=== PATIENT | female | born 1990 | race Caucasian/White ===

== ENCOUNTER 2017-07-10 05:01 | Inpatient (IN) | payer OTHER ==
[2017-07-10] MEDS ORDERED: Nalbuphine 10 MG/1 ML Vial IVPUSH PRN (07:09)
[2017-07-10] MEDS ORDERED: Lidocaine 1% 50 ML MDV INJECT PRN (07:09)
[2017-07-10] MEDS ORDERED: Water For Irrigation,Sterile 1,000 ML Container IRR PRN (07:09)
[2017-07-10] MEDS ORDERED: Misoprostol 200 MCG Tab PO PRN (07:09)
[2017-07-10] MEDS ORDERED: Sodium Chloride 0.9% 10 ML Syringe FLUSH PRN (07:09)
[2017-07-10] MEDS ORDERED: Sodium Chloride 0.9% 2.5 ML Syringe FLUSH PRN (07:09)
[2017-07-10] MEDS ORDERED: Methylergonovine 0.2 MG/1 ML Amp IM PRN (07:09)
[2017-07-10] MEDS ORDERED: Carboprost Tromethamine 250 MCG/1 ML Amp IM PRN (07:09)
[2017-07-10] MEDS ORDERED: Butorphanol 1 MG/ML SDV IVPUSH PRN (07:09)
[2017-07-10] MEDS ORDERED: Oxytocin/Lactated Ringers 30 UNIT/500 ML BAG IV SCH (07:15)
[2017-07-10] MEDS: Lactated Ringers 1,000 ML IV SCH ×3 (07:35→10:19)
[2017-07-10] MEDS ORDERED: fentaNYL 100 MCG/2 ML SDV ONE (08:10)
[2017-07-10] MEDS ORDERED: ePHEDrine 50 MG/ML SDV ONE (08:10)
[2017-07-10] MEDS ORDERED: Ropivacaine 0.2% 2 MG/ML 20 ML SDV ONE (08:11)
[2017-07-10] MEDS ORDERED: Ropivacaine HCl/PF 100 ML ONE (08:11)
--- NOTE | 2017-07-10 09:07 | PCM.PREANE ---
Preanesthetic Assessment - Procedure Proposed Procedure: labor epidural - Anesthesia/Transfusion/Family Hx Anesthesia History: Prior Anesthesia Without Reaction Family History of Anesthesia Reaction: No Transfusion History: Unknown - Review of Systems General: No Symptoms Pulmonary: No Symptoms Cardiovascular: No Symptoms Gastrointestinal: No Symptoms Neurological: Other (degenerative disc disease L5) Other: Reports: None - Physical Assessment Height: 1.64 m Weight: 68.039 kg ASA Class: 2 Mental Status: Alert & Oriented x3 Airway Class: Mallampati = 1 Dentition: Reports: Normal Dentition Thyro-Mental Finger Breadths: 3 Mouth Opening Finger Breadths: 3 ROM/Head Extension: Full Lungs: Clear to Auscultation, Normal Respiratory Effort Cardiovascular: Regular Rate - Lab Values: Laboratory Last Values WBC 11.21 K/uL (4.0-11.0) H 07/10/17 07:35 RBC 4.31 M/uL (4.30-5.90) 07/10/17 07:35 Hgb 13.4 g/dL (12.0-16.0) 07/10/17 07:35 Hct 39.2 % (36.0-46.0) 07/10/17 07:35 MCV 91.0 fL (80.0-98.0) 07/10/17 07:35 MCH 31.1 pg (27.0-32.0) 07/10/17 07:35 MCHC 34.2 g/dL (31.0-37.0) 07/10/17 07:35 RDW Std Deviation 41.9 fl (28.0-62.0) 07/10/17 07:35 RDW Coeff of Rita 13 % (11.0-15.0) 07/10/17 07:35 Plt Count 226 K/uL (150-400) 07/10/17 07:35 MPV 10.10 fL (7.40-12.00) 07/10/17 07:35 Nucleated RBC % 0.0 /100WBC 07/10/17 07:35 Nucleated RBCs # 0 K/uL 07/10/17 07:35 Blood Type A POSITIVE 07/10/17 07:35 Antibody Screen NEGATIVE 07/10/17 07:35 - Allergies Allergies/Adverse Reactions: Allergies Allergy/AdvReac Type Severity Reaction Status Date / Time latex Allergy Rash Verified 05/05/14 17:17 Penicillins Allergy Hives Verified 05/05/14 17:17 valacyclovir HCl Allergy Rash Verified 05/05/14 17:17 [From Valtrex] - Blood Blood Available: Yes Product(s) Available: PRBC - Anesthesia Plan Pre-Op Medication Ordered: None - Acknowledgements Anesthesia Type Planned: Epidural Pt an Appropriate Candidate for the Planned Anesthesia: Yes Alternatives and Risks of Anesthesia Discussed w Pt/Guardian: Yes Pt/Guardian Understands and Agrees with Anesthesia Plan: Yes PreAnesthesia Questionnaire - Past Health History Medical/Surgical History: Denies Medical/Surgical History - SUBSTANCE USE Days Per Week of Alcohol Use: 0 Number of Drinks Per Day: 0 Total Drinks Per Week: 0 Recreational Drug Use History: No - HOME MEDS Home Medications: Home Meds Vit No.78/Iron/Fa [Prenatabs FA] 1 each PO 05/05/14 [History] - CURRENT (IN HOUSE) MEDS Current Meds: Current Medications Butorphanol Tartrate (Stadol) 1 mg IVPUSH Q1H PRN PRN Reason: Pain Carboprost Tromethamine (Hemabate Ds) 250 mcg IM ASDIRECTED PRN PRN Reason: Post Hemorrhage Lactated Ringer's (Ringers, Lactated) 1,000 mls @ 150 mls/hr IV ASDIRECTED ELIOT Last Admin: 07/10/17 08:24 Dose: 999 mls/hr Lidocaine HCl (Xylocaine 1%) 50 ml INJECT .ONCE PRN PRN Reason: Laceration repair Methylergonovine Maleate (Methergine) 0.2 mg IM ASDIRECTED PRN PRN Reason: Post Hemorrhage Misoprostol (Cytotec) 200 mcg PO .ONCE PRN PRN Reason: Post Hemorrhage Nalbuphine HCl (Nubain) 10 mg IVPUSH Q1H PRN PRN Reason: Pain (severe 7-10) Sodium Chloride (Saline Flush) 10 ml FLUSH ASDIRECTED PRN PRN Reason: Keep Vein Open Sodium Chloride (Saline Flush) 2.5 ml FLUSH ASDIRECTED PRN PRN Reason: Keep Vein Open Sterile Water (Sterile Water For Irrigation) 1,000 ml IRR ASDIRECTED PRN PRN Reason: delivery Discontinued Medications Ephedrine Sulfate (Ephedrine Sulfate) Confirm Administered Dose 50 mg .ROUTE .STK-MED ONE Stop: 07/10/17 08:11 Fentanyl (Sublimaze) Confirm Administered Dose 300 mcg .ROUTE .STK-MED ONE Stop: 07/10/17 08:11 Oxytocin/Lactated Ringer's (Pitocin In Lr 30 Units/500 Ml) 30 unit in 500 mls @ 999 mls/hr IV TITRATE ELIOT; 999 MUNITS/MIN PRN Reason: Protocol Stop: 07/10/17 07:46 Ropivacaine (Naropin 0.2%) Confirm Administered Dose 100 mls @ as directed .ROUTE .STK-MED ONE Stop: 07/10/17 08:12 Ropivacaine (Naropin 0.2%) Confirm Administered Dose 20 ml .ROUTE .STK-MED ONE Stop: 07/10/17 08:12
--- NOTE | 2017-07-10 09:18 | PCM.PRNOTE ---
- Free Text/Narrative Note: pt requesting epidural for relief of labor pain. history reviewed, pt had prior epidural placement with no problem. discussed placement,risks and expectations including nerve pain, nerve damage, bleeding, infection, unsuccessful placement or one sided epidural relief requiring replacement.pt agrees. sitting up, sterile betadine prep times three with sterile drape. 1% lidocaine SQ at L3. # 25 touhy epidural needle advanced SRIKANTH with saline. epidural space found very shallow at approximately 4 cm. no heme, no parasthesia. catheter placed easily, taped at 9 cm at skin. test dose 1.5% lidocaine with epi 1:200,000 3 ml. no reaction noted. pt supine, loading dose of 7 ml 0.2% ropivicaine and 100 mcg fentanyl injected over 5 minutes. pt remains stable. pain down to 1/10 feeling pressure only. ropivicaine 0.2% with fentanyl 2 mcg/ml started at 10 ml/hr. education reviewed regarding use of epidural pump bolus handle. pt comfortable
[2017-07-10] MEDS ORDERED: Oxytocin/Lactated Ringers 30 UNIT/500 ML BAG ONE (12:33)
[2017-07-10] MEDS ORDERED: oxyCODONE 5 MG Tab PO PRN (13:04)
[2017-07-10] MEDS ORDERED: Witch Hazel Medicated Pads 40/Jar TOP PRN (13:04)
[2017-07-10] MEDS ORDERED: Benzocaine/Menthol 20%-0.5% Spray 78 GM Cannister TOP PRN (13:04)
[2017-07-10] MEDS ORDERED: Lanolin 100% Cream 7 GM Tube TOP PRN (13:04)
[2017-07-10] MEDS ORDERED: Acetaminophen 500 MG Tab PO PRN ×2 (13:04)
[2017-07-10] MEDS ORDERED: Bisacodyl 10 MG Supp RECTAL PRN (13:04)
[2017-07-10] MEDS ORDERED: Ibuprofen 400 MG Tab PO PRN (13:04)
[2017-07-10] MEDS ORDERED: Docusate Sodium 100 MG Cap PO PRN (13:04)
[2017-07-10] MEDS: Ibuprofen 800 MG Tab PO PRN ×2 (16:45→22:33)
[2017-07-11] MEDS: Ibuprofen 800 MG Tab PO PRN ×2 (04:14→11:36)
[2017-07-11 04:37] VITALS: BP 133/86
--- NOTE | 2017-07-11 07:50 | PCM48HPAN ---
Post Anesthesia Note - EVALUATION WITHIN 48HRS OF ANESTHETIC Vital Signs in Normal Range: Yes Patient Participated in Evaluation: Yes Respiratory Function Stable: Yes Airway Patent: Yes Cardiovascular Function Stable: Yes Hydration Status Stable: Yes Pain Control Satisfactory: Yes Nausea and Vomiting Control Satisfactory: Yes Mental Status Recovered: Yes
--- NOTE | 2017-07-11 08:00 | PCM.PNPP ---
<Gerald Ray - Last Filed: 07/11/17 08:03> - General Info Date of Service: 07/11/17 Admission Dx/Problem (Free Text): Spontaneous onset of labor Subjective Update: Pt is doing well today. Pt is without difficulty. Has had no problems urinating. Has not had a bowel movement yet. Pain has been well controlled. Patient denies chest pain, shortness of breath, fever or chills. Functional Status: Reports: Pain Controlled, Tolerating Diet, Ambulating, Urinating - Review of Systems General: Reports: No Symptoms Cardiovascular: Reports: No Symptoms Gastrointestinal: Reports: No Symptoms Genitourinary: Reports: No Symptoms - General Info Date of Service: 07/11/17 - Patient Data Vital Signs - Most Recent: Last Vital Signs Temp 36.8 C 07/11/17 04:15 Pulse 72 07/11/17 04:15 Resp 16 07/11/17 04:15 BP 133/86 07/11/17 04:15 Pulse Ox 99 07/11/17 04:15 Weight - Most Recent: 150 lb Lab Results - Last 24 Hours: Laboratory Results - last 24 hr 07/10/17 07/11/17 Range/Units 07:35 05:00 Hgb 12.5 (12.0-16.0) g/dL Hct 36.5 (36.0-46.0) % Blood Type A POSITIVE Antibody Screen NEGATIVE Med Orders - Current: Current Medications Acetaminophen (Tylenol Extra Strength) 500 mg PO Q4H PRN PRN Reason: Pain Acetaminophen (Tylenol Extra Strength) 1,000 mg PO Q4H PRN PRN Reason: Pain Benzocaine/Menthol (Dermoplast Pain Relief 20%-0.5% [place]) 78 gm TOP ASDIRECTED PRN PRN Reason: Perineal Comfort Measure Last Admin: 07/10/17 19:53 Dose: 1 can Bisacodyl (Dulcolax) 10 mg RECTAL .ONCE PRN PRN Reason: Constipation Docusate Sodium (Colace) 100 mg PO BID PRN PRN Reason: Constipation Last Admin: 07/10/17 19:54 Dose: 100 mg Emollient Ointment (Lansinoh Hpa) 0 gm TOP ASDIRECTED PRN PRN Reason: Sore Nipples Ibuprofen (Motrin) 400 mg PO Q4H PRN PRN Reason: Pain Ibuprofen (Motrin) 800 mg PO Q6H PRN PRN Reason: Pain Last Admin: 07/11/17 04:14 Dose: 800 mg Oxycodone HCl (Oxycodone) 5 mg PO Q2H PRN PRN Reason: Pain Sodium Chloride (Saline Flush) 10 ml FLUSH ASDIRECTED PRN PRN Reason: Keep Vein Open Sodium Chloride (Saline Flush) 2.5 ml FLUSH ASDIRECTED PRN PRN Reason: Keep Vein Open Witch Cornelia (Tucks) 1 pad TOP ASDIRECTED PRN PRN Reason: comfort care Discontinued Medications Butorphanol Tartrate (Stadol) 1 mg IVPUSH Q1H PRN PRN Reason: Pain Carboprost Tromethamine (Hemabate Ds) 250 mcg IM ASDIRECTED PRN PRN Reason: Post Hemorrhage Ephedrine Sulfate (Ephedrine Sulfate) Confirm Administered Dose 50 mg .ROUTE .STK-MED ONE Stop: 07/10/17 08:11 Fentanyl (Sublimaze) Confirm Administered Dose 300 mcg .ROUTE .STK-MED ONE Stop: 07/10/17 08:11 Lactated Ringer's (Ringers, Lactated) 1,000 mls @ 150 mls/hr IV ASDIRECTED ELIOT Last Admin: 07/10/17 10:19 Dose: 150 mls/hr Oxytocin/Lactated Ringer's (Pitocin In Lr 30 Units/500 Ml) 30 unit in 500 mls @ 999 mls/hr IV TITRATE ELIOT; 999 MUNITS/MIN PRN Reason: Protocol Stop: 07/10/17 07:46 Last Admin: 07/10/17 12:44 Dose: 999 munits/min, 999 mls/hr Ropivacaine (Naropin 0.2%) Confirm Administered Dose 100 mls @ as directed .ROUTE .STK-MED ONE Stop: 07/10/17 08:12 Oxytocin/Lactated Ringer's (Pitocin In Lr 30 Units/500 Ml) Confirm Administered Dose 30 unit in 500 mls @ as directed .ROUTE .STK-MED ONE Stop: 07/10/17 12:34 Lidocaine HCl (Xylocaine 1%) 50 ml INJECT .ONCE PRN PRN Reason: Laceration repair Methylergonovine Maleate (Methergine) 0.2 mg IM ASDIRECTED PRN PRN Reason: Post Hemorrhage Misoprostol (Cytotec) 200 mcg PO .ONCE PRN PRN Reason: Post Hemorrhage Nalbuphine HCl (Nubain) 10 mg IVPUSH Q1H PRN PRN Reason: Pain (severe 7-10) Ropivacaine (Naropin 0.2%) Confirm Administered Dose 20 ml .ROUTE .STK-MED ONE Stop: 07/10/17 08:12 Sterile Water (Sterile Water For Irrigation) 1,000 ml IRR ASDIRECTED PRN PRN Reason: delivery - Infant Interaction Infant Disposition, : in Room with Family Interaction: Holding Infant Infant Feeding: Breastfed Infant; Nursed Well Support Person: - Recovery Exam Fundal Tone: Firm Fundal Level: 2 Fingerbreadths Below Umbilicus Fundal Placement: Midline Lochia Amount: Scant, Small Lochia Color: Rubra/Red Perineum Description: Intact, Minimal Bruising/Swelling Episiotomy/Laceration: None Bladder Status: Voiding Urinary Elimination: Voided - Exam General: Alert, Oriented Lungs: Clear to Auscultation, Normal Respiratory Effort. No: Crackles, Rales, Rhonchi Cardiovascular: Regular Rate, Regular Rhythm. No: Bradycardia, Tachycardia, Murmurs, Gallops GI/Abdominal Exam: Normal Bowel Sounds, Soft (Uterus firm, midline, below umbilicus, mild tenderness) Extremities: Pedal Edema (1+) - Problem List & Annotations (1) Vaginal delivery SNOMED Code(s): 244104200 Code(s): O80 - ENCOUNTER FOR FULL-TERM UNCOMPLICATED DELIVERY Status: Acute Current Visit: Yes - Problem List Review Problem List Initiated/Reviewed/Updated: Yes - Assessment Assessment:: 26 yo @ 39w2d, spontaneous vaginal delivery without laceration, PPD #1 Pain well controlled Urinating well No signs of fever - Plan Plan:: Routine cares. Continue current pain management. Continue to support and frequent ambulation. Continue stool softener, laxative as needed. Plan for discharge later today. <GaleLashaun - Last Filed: 07/11/17 12:02> - Patient Data Vital Signs - Most Recent: Last Vital Signs Temp 36.8 C 07/11/17 04:15 Pulse 72 07/11/17 04:15 Resp 16 07/11/17 04:15 BP 133/86 09/12/17 04:15 Pulse Ox 99 07/11/17 04:15 Lab Results - Last 24 Hours: Laboratory Results - last 24 hr 07/11/17 Range/Units 05:00 Hgb 12.5 (12.0-16.0) g/dL Hct 36.5 (36.0-46.0) % Med Orders - Current: Current Medications Acetaminophen (Tylenol Extra Strength) 500 mg PO Q4H PRN PRN Reason: Pain Acetaminophen (Tylenol Extra Strength) 1,000 mg PO Q4H PRN PRN Reason: Pain Benzocaine/Menthol (Dermoplast Pain Relief 20%-0.5% [place]) 78 gm TOP ASDIRECTED PRN PRN Reason: Perineal Comfort Measure Last Admin: 07/10/17 19:53 Dose: 1 can Bisacodyl (Dulcolax) 10 mg RECTAL .ONCE PRN PRN Reason: Constipation Docusate Sodium (Colace) 100 mg PO BID PRN PRN Reason: Constipation Last Admin: 07/10/17 19:54 Dose: 100 mg Emollient Ointment (Lansinoh Hpa) 0 gm TOP ASDIRECTED PRN PRN Reason: Sore Nipples Ibuprofen (Motrin) 400 mg PO Q4H PRN PRN Reason: Pain Ibuprofen (Motrin) 800 mg PO Q6H PRN PRN Reason: Pain Last Admin: 07/11/17 11:36 Dose: 800 mg Oxycodone HCl (Oxycodone) 5 mg PO Q2H PRN PRN Reason: Pain Sodium Chloride (Saline Flush) 10 ml FLUSH ASDIRECTED PRN PRN Reason: Keep Vein Open Sodium Chloride (Saline Flush) 2.5 ml FLUSH ASDIRECTED PRN PRN Reason: Keep Vein Open Witch [place]elia (Tucks) 1 pad TOP ASDIRECTED PRN PRN Reason: comfort care Discontinued Medications Butorphanol Tartrate (Stadol) 1 mg IVPUSH Q1H PRN PRN Reason: Pain Carboprost Tromethamine (Hemabate Ds) 250 mcg IM ASDIRECTED PRN PRN Reason: Post Hemorrhage Ephedrine Sulfate (Ephedrine Sulfate) Confirm Administered Dose 50 mg .ROUTE .STK-MED ONE Stop: 07/10/17 08:11 Fentanyl (Sublimaze) Confirm Administered Dose 300 mcg .ROUTE .STK-MED ONE Stop: 07/10/17 08:11 Lactated Ringer's (Ringers, Lactated) 1,000 mls @ 150 mls/hr IV ASDIRECTED ELIOT Last Admin: 07/10/17 10:19 Dose: 150 mls/hr Oxytocin/Lactated Ringer's (Pitocin In Lr 30 Units/500 Ml) 30 unit in 500 mls @ 999 mls/hr IV TITRATE ELIOT; 999 MUNITS/MIN PRN Reason: Protocol Stop: 07/10/17 07:46 Last Admin: 07/10/17 12:44 Dose: 999 munits/min, 999 mls/hr Ropivacaine (Naropin 0.2%) Confirm Administered Dose 100 mls @ as directed .ROUTE .STK-MED ONE Stop: 07/10/17 08:12 Oxytocin/Lactated Ringer's (Pitocin In Lr 30 Units/500 Ml) Confirm Administered Dose 30 unit in 500 mls @ as directed .ROUTE .STK-MED ONE Stop: 07/10/17 12:34 Lidocaine HCl (Xylocaine 1%) 50 ml INJECT .ONCE PRN PRN Reason: Laceration repair Methylergonovine Maleate (Methergine) 0.2 mg IM ASDIRECTED PRN PRN Reason: Post Hemorrhage Misoprostol (Cytotec) 200 mcg PO .ONCE PRN PRN Reason: Post Hemorrhage Nalbuphine HCl (Nubain) 10 mg IVPUSH Q1H PRN PRN Reason: Pain (severe 7-10) Ropivacaine (Naropin 0.2%) Confirm Administered Dose 20 ml .ROUTE .STK-MED ONE Stop: 07/10/17 08:12 Sterile Water (Sterile Water For Irrigation) 1,000 ml IRR ASDIRECTED PRN PRN Reason: delivery - Exam Psy/Mental Status: Alert, Normal Affect - Assessment Assessment:: Agree with above note. Patient is clinically stable for discharge today - Plan Plan:: Agree with the above note Discharge instructions reviewed with patient. Nothing in the vagina for 6 weeks Bleeding and infection precautions reviewed Follow up in the clinic in 6 weeks
--- NOTE | 2017-07-11 14:29 | OR ---
SURGEON: JOSETTE TREVINO DATE OF PROCEDURE: 07/10/2017 PREOPERATIVE DIAGNOSES: Intrauterine at 39 weeks and 2 days, GBS negative, and in spontaneous labor. POSTOPERATIVE DIAGNOSES: Delivered at 39 weeks and 2 days, spontaneous vaginal delivery. GBS negative. PROCEDURE PERFORMED: Spontaneous vaginal delivery. ANESTHESIA: Epidural. ESTIMATED BLOOD LOSS: 300. FINDINGS: Live new infant delivered at 4:43 p.m. in occipitoanterior position. Weight was 3450 grams. was 9 and 9. Placenta was delivered, intact 3-0 vessel cord. No lacerations noted. COMPLICATIONS: None. DISPOSITION: Infant and mother are well and stable. DELIVERY SUMMARY: The patient was admitted in early labor and was noted to be 3, 80, -2 at 5:30 a.m. The patient made progress to 4, 80, -2 at 6:45 a.m. and progressed to 4, 90, 0 at 8 a.m. where she was artificially ruptured. At 10:15 a.m. the patient was noted to be 5, 100, 0. The patient then made change at about 12 noon to fully dilated. The infant was initially noted to be on the right occipitoanterior position. As the patient fully progressed in the labor, baby became occipitoanterior position. PROCEDURE DETAILS: The patient was encouraged to push down. The patient pushed for about 30 minutes and the head was spontaneously delivered. The shoulders were allowed to restitute, was then subsequently delivered, followed by delivering of the 's body. The placenta was clamped and cut. The father was allowed to cut the cord and the infant was handed over to the mother for [id number]. Subsequently, the placenta was delivered by controlled cord traction and Pitocin was also started at the third stage of labor. The placenta was delivered intact. The cord blood gases were also received. The bimanual massage of the uterus was done to ensure that the uterus was well contracted. The perineum was inspected, no laceration was noted. The patient was then cleaned and all instrument and pad counts were correct x2. The patient was encouraged to breastfeed the infant. She was stable and encouraged to breastfeed the infant. The patient tolerated the delivery very well. Dr. Trevino was present for the entire procedure. JACEK / NUHA /[id number] [id number]
== END 2017-07-11 16:00 | disposition home or self-care (01) | DRG 775 ==
LOC: MW.OB 05:01 → MW.OBCHECK 05:01 → MW.OB 07:09 → MW.OBCHECK 07:09 → OBSVTOIN 13:04
PROVIDERS: ADMIT Obstetrics & Gynecology; ATTEND Obstetrics & Gynecology
PROC: 10E0XZZ Delivery of Products of Conception, External Approach (ICD-10-PCS; principal; 2017-07-10)
PROC: 10907ZC Drainage of Amniotic Fluid, Therapeutic from Products of Conception, Via Natural or Artificial Opening (ICD-10-PCS; 2017-07-10)
DX: O80 Encounter for full-term uncomplicated delivery (principal); Z3A.39 39 weeks gestation of pregnancy; Z37.0 Single live birth
CPT/HCPCS: 36415; 51703; 59025; 85014; 85018; 85027; 86850; 86900; 86901; A9270-GY; J7120